=== PATIENT | male | born 1960 | race Caucasian/White ===

== ENCOUNTER 2019-04-12 15:27 | Emergency (ER) | payer SELFPAY ==
[2019-04-12 16:06] LABS: HEMATOCRIT 53.4 % (37.9-51.0); HEMOGLOBIN 18.7 g/dL (13.5-17.0); MEAN CORPUSCULAR HEMOGLOBIN 29.9 pg (27.0-33.4); MEAN CORPUSCULAR HGB CONC 35.1 g/dL (32.0-36.0); MEAN CORPUSCULAR VOLUME 85 fl (80-97); PLATELET COUNT 284 10^3/uL (150-450); RED BLOOD COUNT 6.27 10^6/uL (4.35-5.55); RED CELL DISTRIBUTION WIDTH 14.9 % (11.5-14.0)
[2019-04-12 16:09] LABS: INTERNATIONAL RATION (INR) 0.93; PROTHROMBIN TIME 12.5 SEC (11.4-15.4)
--- NOTE | 2019-04-12 16:10 | RADIOLOGY REPORT (SQ) ---
EXAM DESCRIPTION: CT HEAD WITHOUT COMPLETED DATE/TIME: 04/12/2019 3:52 pm REASON FOR STUDY: slurred speech, left arm weakness, hx of VonWill COMPARISON: None. TECHNIQUE: Axial images acquired through the brain without intravenous contrast. Images reviewed wi th bone, brain and subdural windows. Images stored on PACS. All CT scanners at this facility use dose modulation, iterative reconstruction, and/or weight based d osing when appropriate to reduce radiation dose to as low as reasonably achievable (ALARA). [facility]: Dose Right [facility]: [employer] [facility]: Dose Right [facility]: Teradose 4D [facility]: [employer] RADIATION DOSE: CT Rad equipment meets quality standard of care and radiation dose reduction techniq ues were employed. CTDIvol: 53.2 mGy. DLP: 1070 mGy-cm. mGy. LIMITATIONS: None. FINDINGS: VENTRICLES: Normal size and contour. CEREBRUM: Area of bandlike low density in the periventricular deep white matter on the right extendin g towards the insula and involving the external capsule. Probable subacute or old infarct. No hemor rhage or mass or shift. No hydrocephalus. CEREBELLUM: No mass effect. No hemorrhage. No alteration of density. No evidence for acute infarct ion. EXTRAAXIAL SPACES: No fluid collections. ORBITS AND GLOBE: Symmetrical contour of the globes. CALVARIUM: No depressed skull fracture. PARANASAL SINUSES: No air-fluid level. SOFT TISSUES: No hematoma. IMPRESSION: 1. Suspect previous infarct in the right cerebrum as above. If there is concern of acute CVA, consid er MRI with diffusion-weighted imaging. TECHNICAL DOCUMENTATION: JOB ID: [id number] [facility] [id number]: Final reports with documentation of one or more dose reduction techniques (e.g., Automate d exposure control, adjustment of the mA and/or kV according to patient size, use of iterative recons truction technique) 2010 [employer]- All Rights Reserved Reading location - IP/workstation name: [email or web address]
--- NOTE | 2019-04-12 16:14 | RADIOLOGY REPORT (SQ) ---
EXAM DESCRIPTION: CHEST SINGLE VIEW COMPLETED DATE/TIME: 04/12/2019 3:54 pm REASON FOR STUDY: slurred speech COMPARISON: 11/27/2010 TECHNIQUE: Single frontal radiographic view of the chest acquired. NUMBER OF VIEWS: One view. LIMITATIONS: None. FINDINGS: LUNGS AND PLEURA: No pneumothorax. No consolidation or pleural effusion. MEDIASTINUM AND HILAR STRUCTURES: Stable. HEART AND VASCULAR STRUCTURES: Stable. BONES: No acute findings. HARDWARE: None in the chest. OTHER: No other significant finding. IMPRESSION: NO ACUTE FINDINGS. TECHNICAL DOCUMENTATION: JOB ID: [id number] [place]-72 2010 [employer]- All Rights Reserved Reading location - IP/workstation name: [email or web address]
--- NOTE | 2019-04-12 16:18 | ER Document Report ---
ED Medical Screen (RME) - General Chief Complaint: S/S of Possible Stroke Stated Complaint: SLURRED SPEECH,LEFT FACIAL DROOPING Time Seen by Provider: 04/12/19 15:31 Primary Care Provider: JASMIN WAGNER [Primary Care Provider] - Follow up as needed TRAVEL OUTSIDE OF THE [place] IN LAST 30 DAYS: No - HPI Notes: 04/12/19 59 year old male with history of VonWillebrand disease to the ER with brother with C/O slurred speech, left hand weakness since (4 days ago). Brother confirms that this is the last known normal timeline. Patient has never had a stroke before. He does not have DM, HLD, HTN. He does have a history of VonWillebrand disease. Made Dr. Lee, ER Attending, aware. I performed a brief medical screening exam on the patient and determined that the patient will need further management by mainside provider. I have placed initial orders to help expedite the patient's care today. - Related Data Allergies/Adverse Reactions: No Known Allergies Allergy (Verified 04/12/19 15:30) Past Medical History - Social History Chew tobacco use (# tins/day): No Frequency of alcohol use: None Drug Abuse: None Past Surgical History: Reports: Hx Appendectomy - Immunizations Hx Diphtheria, Pertussis, Tetanus Vaccination: Yes Physical Exam - Vital signs Vitals: Temp Pulse Resp BP Pulse Ox 98.2 F 108 H 16 146/88 H 95 04/12/19 15:30 04/12/19 15:30 04/12/19 15:30 04/12/19 15:30 04/12/19 15:30 Course - Vital Signs Vital signs: Temp Pulse Resp BP Pulse Ox 98.2 F 108 H 16 146/88 H 95 04/12/19 15:30 04/12/19 15:30 04/12/19 15:30 04/12/19 15:30 04/12/19 15:30 - Laboratory Result Diagrams: 04/12/19 15:51 04/12/19 15:51 Laboratory results interpreted by me: 04/12/19 15:50 POC Glucose 352 H Doctor's Discharge - Discharge Referrals: JASMIN WAGNER [Primary Care Provider] - Follow up as needed
--- NOTE | 2019-04-12 16:19 | ER Document Report ---
ED Neuro Symptoms/Deficit - General Chief Complaint: S/S of Possible Stroke Stated Complaint: SLURRED SPEECH,LEFT FACIAL DROOPING Time Seen by Provider: 04/12/19 15:31 Primary Care Provider: JASMIN WAGNER [NO LOCAL MD] - Follow up as needed Notes: Mr. Oliveros is a 59-year-old male with past medical history of von Willebrand disease presenting to the ED for strokelike symptoms. Patient states that he was talking to his sister on the phone and she asked him if he was drunk. He states he does not drink any alcohol but has noticed some significant decrease in strength in the left side of his body, as well as some mild slurred speech. He states that the symptoms have been ongoing for at least 2 weeks. 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 He states that he has been dropping soda cans from his hand and has had increased falls. His symptoms worsened this past . He states that he would not have come to the ED at all unless his brother did not make him earlier today. He denies any chest pain, shortness of breath, lightheadedness or fever/chills. Patient denies any nausea, vomiting or diarrhea. Patient does smoke approximately 1 pack/day and has smoked this since he was 14 years old. Patient also adds that he has not seen a primary care doctor in at least 4 years. TRAVEL OUTSIDE OF THE [place] IN LAST 30 DAYS: No - Related Data Allergies/Adverse Reactions: No Known Allergies Allergy (Verified 04/12/19 15:30) Past Medical History - Social History Smoking Status: Current Every Day Smoker Chew tobacco use (# tins/day): No Frequency of alcohol use: None Drug Abuse: None Family History: DM, Hypertension Patient has suicidal ideation: No Patient has homicidal ideation: No Past Surgical History: Reports: Hx Appendectomy - Immunizations Hx Diphtheria, Pertussis, Tetanus Vaccination: Yes Review of Systems - Review of Systems Constitutional: See HPI EENT: No symptoms reported Cardiovascular: No symptoms reported Respiratory: No symptoms reported Gastrointestinal: No symptoms reported Genitourinary: No symptoms reported Male Genitourinary: No symptoms reported Musculoskeletal: No symptoms reported Skin: No symptoms reported Hematologic/Lymphatic: No symptoms reported Neurological/Psychological: See HPI Physical Exam - Vital signs Vitals: Temp Pulse Resp BP Pulse Ox 98.2 F 108 H 16 146/88 H 95 04/12/19 15:30 04/12/19 15:30 04/12/19 15:30 04/12/19 15:30 04/12/19 15:30 Interpretation: Hypertensive, Tachycardic - General General appearance: Appears well, Alert - HEENT Head: Normocephalic, Atraumatic Eyes: Normal Pupils: PERRL - Respiratory Respiratory status: No respiratory distress Chest status: Nontender Breath sounds: Normal Chest palpation: Normal - Cardiovascular Rhythm: Regular Heart sounds: Normal auscultation Murmur: No - Abdominal Inspection: Normal Distension: No distension Bowel sounds: Normal Tenderness: Nontender Organomegaly: No organomegaly - Back Back: Normal, Nontender - Extremities General upper extremity: Normal inspection, Nontender, Normal color, Normal ROM, Normal temperature General lower extremity: Normal inspection, Nontender, Normal color, Normal ROM, Normal temperature, Normal weight bearing. No: July's sign - Neurological Neuro grossly intact: Yes Cognition: Normal Orientation: AAOx4 Neisha Coma Scale Eye Opening: Spontaneous Maribel Coma Scale Verbal: Oriented Maribel Coma Scale Motor: Obeys Commands Maribel Coma Scale Total: 15 Speech: Normal Cranial nerves: Facial palsy - Left perioral/left lower face is is drooped and flattened., Sensory deficit, Tongue deviation - Towards the right Motor strength normal: RUE, LLE, RLE. No: LUE - Decreased strength in the left arm with pronator drift as well as decreased left hand build master. Additional motor exam normals: Pronator drift - On the left. No: Equal build master - Decreased left hand build master. Sensory: Altered light touch - Psychological Associated symptoms: Normal affect, Normal mood - Skin Skin Temperature: Warm Skin Moisture: Dry Skin Color: Normal Course - Re-evaluation Re-evalutation: Patient is chronically ill-appearing and unkept. Initial vitals notable for mi ldly elevated blood pressure and tachycardia. EKG is nonischemic. Been the patient's history of von Willebrand disease as well as his onset of symptoms over 2 weeks ago and worsening on this past , the patient is not a TPA candidate. Labs and CT were ordered from triage. CBC notable for mild leukocytosis without left shift. H&H is elevated consistent with hemoconcentration. CMP notable for hyperglycemia with glucose of 380. Sodium is mildly decreased at 131 however likely related to elevated glucose. Patient states he has not eaten any food since yesterday however he has had some soda much earlier today. CT concerning for previous infarct in the right cerebrum. However the patient does not have any known history of previous CVA. An MRI was ordered per the recommendation of the CT and radiologist. MRI notable for an acute or subacute infarction of 2.5 cm in the right posterior temporal insular cortex and periventricular white matter. 04/12/19 16:40 NIH stroke scale performed. Patient did receive a 4. However the patient is not a TPA candidate as his symptoms have been going on for approximately 2 weeks now and he already has evidence of infarction on CT. MRI ordered. 04/12/19 18:07 I opened the MRI which was resulted. No radiologist or trim technician called to inform me of results. I spoke to the covering provider hospitalist here who indicated that they do not feel comfortable accepting the patient given the MRI read for the right MCA CVA concerning for acute versus subacute. Requesting evaluation by neurology and that the patient be transferred. Calling winder contort operator for transfer to [facility]. 04/12/19 18:11 Spoke to [facility]. No neurologist available, they use telestroke. Called [facility], for transfer. Transfer center will call back. 04/12/19 18:[address] Powell, radiologist, who stated that the group is using a new automated system to make calls. He will call the provider and let me know how to address how this acute stroke was reported and to who. MD Viviane for this patient, nor did the patient's nurse, Dwain, received any phone calls. 04/12/19 18:[address] Langston, radiologist who read the MRI. He states that he use the automated system which is supposed to call back the clinician within 10 min utes. I explained that no call was received by myself or the nurse. He will investigate further regarding why no one was notified of the acute findings by Dr. Renan GARCIA 04/12/19 18:36 04/12/19 18:42 Spoke to Dayana Garibay @ [facility], midlevel provider with neurology. Recommended transfer to the hospital with hospitalist. Trend support and transfer team will call to recoordinate conversation with myself and hospitalist for patient transfer. 04/12/19 18:[address] Hudson. Will accept patient to stroke floor. Pt accepted to [facility]. - Vital Signs Vital signs: Temp Pulse Resp BP Pulse Ox 98.8 F 96 20 144/84 H 96 04/12/19 19:01 04/12/19 19:14 04/12/19 19:14 04/12/19 19:14 04/12/19 19:14 - Laboratory Result Diagrams: 04/12/19 15:51 04/12/19 15:51 Laboratory results interpreted by me: 04/12/19 04/12/19 04/12/19 15:50 15:51 15:51 WBC 11.0 H RBC 6.27 H Hgb 18.7 H Hct 53.4 H RDW 14.9 H Sodium 131.5 L Chloride 95 L Carbon Dioxide 21 L Glucose 380 H POC Glucose 352 H Calcium 10.4 H - EKG Interpretation by Me EKG shows normal: Sinus rhythm, [place], ST-T Waves Rate: Normal Rhythm: NSR When compared to previous EKG there are: Previous EKG unavailable Additional EKG results interpreted by me: 04/12/19 19:13 Q waves anteriorly in V1, V2, V3, and V4. 04/12/19 19:14 Prolonged QT interval Critical Care Note - Critical Care Note Total time excluding time spent on procedures (mins): 40 - Extensive differential diagnosis, need for multiple reassessments, need for consultants and transfer. Discharge - Discharge Clinical Impression: Acute ischemic right MCA stroke, Left hand weakness, Slurred speech, Limb ataxia Condition: Fair Disposition: [facility] Admitting Provider: Dr. Hudson Referrals: LOCALMD,NO [NO LOCAL MD] - Follow up as needed ED NIH Stroke Scale - NIH Stroke Scale When completed:: Protocol *: 1. NIH scale should be completed with appropriate accompanying assessment tools. *: 2. The NIH should reflect what the patient is capable of doing and should not be coached by the clinician. 1a. Level of Consciousness: 0=Alert;keenly responsive -: 1=Drowsy -: 2=Obtunded -: 3=Coma/unresponsive or reflex to noxious stimuli. 1a. Responses: 0 1b. Orientation Questions: a. What month is it? -: b. How old are you? -: 0=Answers both questions correctly. -: 1=Answers one question correctly or patient is intubated or has orotracheal trauma. -: 2=Answers neither question correctly. 1b. Responses: 0 1c. Response to commands: a. Open and close eyes? -: b. Grinder Hand and release hand? -: Credit is given despite weakness. Demonstration of task is permitted. Substitute command if hands cannot be used. -: 0=Performs both tasks correctly -: 1=Performs one task correctly -: 2=Performs neither task correctly 1c. Responses: 0 2. Gaze: Establish eye contact and instruct patient to "Follow my finger" -: 0=Normal -: 1=Partial gaze palsy. Gaze is abnormal in one or both eyes, but where forced deviation or total gaze paresis is not present. -: 2=Forced deviation or total gaze paresis. 2. Responses: 0 3. Visual Batres: Sees fingers in all four quadrants. -: 0=No visual loss. -: 1=Partial hemianopsia. -: 2=Complete hemianopsia. -: 3=Bilateral hemianopsia (including Cortical blindness) 3. Responses: 0 4. Facial Movement: Instruct patient to: -: a. Show me your teeth -: b. Raise your eyebrows -: c. Close your eyes -: d. Smile -: 0=Normal symmetrical movement -: 1=Minor paralysis (flattened nasolabial fold, asymmetry on smiling). -: 2=Partial paralysis (total or near total paralysis of lower face). -: 3=Complete paralysis of upper and lower face 4. Responses: 1 5. Motor functions (left arm): Alternate sides and extend each arm with palms down (90 degrees if sitting or 45 degrees for supine). -: 0=No drift;limb holds for full 10 seconds. -: 1=Drift; limb holds but drifts down before full 10 seconds, but does not hit bed. -: 2=Some effort against gravity; limb cannot get to or maintain position. -: 3=No effort against gravity; limb falls. -: 4=No movement. -: UN=Amputation, joint fusion, explain in comments. 5. Responses (left arm): 1 5. Motor Functions (right arm): Alternate sides and extend each arm with palms down (90 degrees if sitting or 45 degrees for supine). -: 0=No drift;limb holds for full 10 seconds. -: 1=Drift; limb holds but drifts down before full 10 seconds, but does not hit bed. -: 2=Some effort against gravity; limb cannot get to or maintain position. -: 3=No effort against gravity; limb falls. -: 4=No movement. -: UN=Amputation, joint fusion, explain in comments. 5. Responses (right arm): 0 6. Motor Functions (left leg): With patient lying supine, alternate sides and extend each leg (30 degrees always while supine). -: 0=No drift, leg holds position for full 5 seconds -: 1=Drift; leg falls before full 5 seconds but does not hit bed. -: 2=Some effort against gravity, leg falls to bed but some effort against gravity. -: 3=No effort against gravity, leg falls to bed immediately. -: 4=No movement. -: UN=Amputation, joint fusion; explain in comments. 6. Responses (left leg): 0 6. Motor Functions (right leg): With patient lying supine, alternate sides and extend each leg (30 degrees always while supine). -: 0=No drift, leg holds position for full 5 seconds -: 1=Drift; leg falls before full 5 seconds but does not hit bed. -: 2=Some effort against gravity, leg falls to bed but some effort against gravity. -: 3=No effort against gravity, leg falls to bed immediately. -: 4=No movement. -: UN=Amputation, joint fusion; explain in comments. 6. Responses (right leg): 0 7. Limb Ataxia: With eyes open instruct patient to: -: a. "Touch your finger to your nose". -: b. "Touch your heel to your alexandre" -: 0=Absent -: 1=Present in one limb. -: 2=Present in two limbs. -: UN=Amputation or joint fusion; explain in comments. 7. Responses: 1 8. Sensory: Test sensation using pinprick or noxious stimuli. Test as many body parts as possible. -: 0=Normal;no sensory loss -: 1=Mile to moderate sensory loss (patient feels pin prick but is less sharp on affected side). -: 2=Severe or total sensory loss. 8. Responses: 1 9. Best Language: Instruct patient to: -: a. "Describe what you see in this picture." -: b. "Name the items in this picture." -: c. "Read these sentences." -: 0=No aphasia, normal -: 1=Mild to moderate aphasia. -: 2=Severe aphasia -: 3=Mute, global aphasia, no usable speech or auditory comprehension. 9. Responses: 0 10. Articulation, Dysarthia: Instruct patient to: -: "Read these words" or "Repeat these words" -: 0=Normal -: 1=Mild to moderate; patient may slur some words but can be understood without difficulty. -: 2=Severe; patients speech so slurred as to be unintelligible in the absence of dysphasia. -: UN=Intubated or other physical barrier, explain in comments. 10. Responses: 0 11. Extinction or inattention: 0=No abnormality -: 1= Visual, tactile, auditory, spatial, or personal inattention or extinction to bilateral simulation in one or the sensory modalities. -: 2=Profound thais-inattention or thais-inattention to more than one modality; do es not recognize own hand. 11. Responses: 0 Total Score: 4
[2019-04-12 16:26] LABS: ALBUMIN 4.5 g/dL (3.5-5.0); ALKALINE PHOSPHATASE 102 U/L (38-126); ANION GAP 16 (5-19); ASPARTATE AMINO TRANSFERASE 28 U/L (17-59); BILIRUBIN,DIRECT 0.3 mg/dL (0.0-0.4); BILIRUBIN,TOTAL 1.1 mg/dL (0.2-1.3); BLOOD UREA NITROGEN 17 mg/dL (7-20); CALCIUM 10.4 mg/dL (8.4-10.2); CARBON DIOXIDE 21 mmol/L (22-30); CHLORIDE 95 mmol/L (98-107); GLUCOSE 380 mg/dL (75-110); POTASSIUM 4.6 mmol/L (3.6-5.0); TOTAL PROTEIN 7.6 g/dL (6.3-8.2)
[2019-04-12 16:31] LABS: ABSOLUTE LYMPHOCYTES# (MANUAL) 2.8 10^3/uL (0.5-4.7); BASOPHILS % (MANUAL) 1 % (0-2); EOSINOPHILS % (MANUAL) 1 % (0-6); LYMPHOCYTES % (MANUAL) 25 % (13-45); MONOCYTES % (MANUAL) 9 % (3-13); SEGMENTED NEUTROPHILS % (MAN) 64 % (42-78); TOTAL CELLS COUNTED 100
[2019-04-12 16:32] LABS: ANISOCYTOSIS SLIGHT; PLATELET COMMENT ADEQUATE
--- NOTE | 2019-04-12 17:37 | RADIOLOGY REPORT (SQ) ---
EXAM DESCRIPTION: MRI HEAD WITHOUT COMPLETED DATE/TIME: 04/12/2019 5:20 pm REASON FOR STUDY: abnormal CT, concern for stroke COMPARISON: None. TECHNIQUE: Multiplanar imaging includes non-contrasted T1, T2, FLAIR, and diffusion with ADC map seq uences. Images stored on PACS. LIMITATIONS: None. FINDINGS: ANATOMY: No anomalies. Normal vascular flow voids. Pituitary fossa normal. CSF SPACES: Normal in size and contour. No hemorrhage. CEREBRUM: Sulci and gyri normal in size and contour. Increased T2 signal in the right posterior temp oral insular cortex and periventricular white matter. No evidence of hemorrhage or extraaxial fluid collection. POSTERIOR FOSSA: No signal alteration. No hemorrhage. No edema, masses or mass effect. Internal katerina tory canals, cerebello-pontine angles, mastoids normal. DIFFUSION IMAGING: Positive for acute or sub-acute infarction in a 2.5 cm area of the right posterior temporal insular cortex and periventricular white matter. ORBITS: No masses. Globes normal. PARANASAL SINUSES: No fluid levels. Mucosa normal. OTHER: No other significant finding. IMPRESSION: Positive for acute or sub-acute infarction in a 2.5 cm area of the right posterior tempo ral insular cortex and periventricular white matter. EVIDENCE OF ACUTE STROKE: YES. RIGHT MCA COMMENT: The findings were sent to the Radiology Results Communication Center at 17:30 on 9 to be communicated to a licensed caregiver. TECHNICAL DOCUMENTATION: JOB ID: [id number] [place]-72 2010 [employer]- All Rights Reserved Reading location - IP/workstation name: [employer]
[2019-04-12] MEDS ORDERED: NORMAL SALINE 1000 ML 1,000 ML IV ONE ×2 (18:40→19:12)
[2019-04-12] MEDS ORDERED: ASPIRIN 81 MG TABLET, CHEWABLE PO ONE (18:41)
--- NOTE | 2019-04-12 20:59 | EKG REPORT ---
SEVERITY:- ABNORMAL ECG - SINUS RHYTHM ANTERIOR INFARCT, AGE INDETERMINATE PROLONGED QT INTERVAL : Confirmed by: Giovanny James MD 12-Apr-2019 20:59:05
[2019-04-12 23:37] VITALS: BP 129/77
== END 2019-04-12 23:44 | disposition short-term general hospital (02) ==
LOC: ER 15:27
DX: I63.9 Cerebral infarction, unspecified (principal); G81.94 Hemiplegia, unspecified affecting left nondominant side; R27.0 Ataxia, unspecified; R47.81 Slurred speech; F17.210 Nicotine dependence, cigarettes, uncomplicated
CPT/HCPCS: 93005; 85240; 85245; 85246; 36415; 82962; 85025; 85610; 80053; 84484; 83036; 70551; 71045; 70450; 93010; J7030; 96360; 96361; 99291

== ENCOUNTER 2019-09-07 09:47 | Emergency (ER) | payer SELFPAY ==
[2019-09-07 09:53] VITALS: BP 145/80
--- NOTE | 2019-09-07 10:08 | ER Document Report ---
HPI - HPI Time Seen by Provider: 09/07/19 09:58 Notes: Patient is a 59-year-old male presenting to the emergency department with request for medication refill. Patient reports he has been out of his medication for 1 month. He needs a refill on his metoprolol, atorvastatin, lisinopril and metformin. He denies any physical complaints today. He states he usually sees the [facility], states they are closed due to COVID-19. - REPRODUCTIVE Reproductive: DENIES: : Past Medical History - General Information source: Patient - Social History Smoking Status: Never Smoker Frequency of alcohol use: None Drug Abuse: None Family History: DM, Hypertension - Past Medical History Cardiac Medical History: Reports: Hx Hypercholesterolemia, Hx Hypertension Past Surgical History: Reports: Hx Appendectomy - Immunizations Hx Diphtheria, Pertussis, Tetanus Vaccination: Yes Vertical Provider Document - CONSTITUTIONAL Notes: PHYSICAL EXAMINATION: GENERAL: Well-appearing, well-nourished and in no acute distress. HEAD: Atraumatic, normocephalic. EYES: Pupils equal round extraocular movements intact, conjunctiva are normal. ENT: Nares patent NECK: Normal range of motion LUNGS: No respiratory distress Musculoskeletal: Normal range of motion NEUROLOGICAL: Normal speech, normal gait. PSYCH: Normal mood, normal affect. SKIN: Warm, Dry, normal turgor, no rashes or lesions noted. - INFECTION CONTROL TRAVEL OUTSIDE OF THE [place] IN LAST 30 DAYS: No Course - Re-evaluation Re-evalutation: 09/07/19 10:10 Medications refilled as per request. Patient's primary care physician is the [facility]. He states he has tried getting an appointment however they are closed. Patient has no physical complaints today. - Vital Signs Vital signs: Temp Pulse Resp BP Pulse Ox 97.6 F 101 H 18 145/80 H 93 09/07/19 09:52 09/07/19 09:52 09/07/19 09:52 09/07/19 09:52 09/07/19 09:52 Discharge - Discharge Clinical Impression: Medication refill Condition: Stable Disposition: HOME, SELF-CARE Additional Instructions: Your medications were refilled today. I also gave you a one-month refill. Please call to establish an appointment with your primary care provider as soon as they open back up. Prescriptions: Atorvastatin Calcium [Lipitor 80 mg Tablet] 80 mg PO QHS #30 tablet Lisinopril [Prinivil 10 mg Tablet] 10 mg PO QHS #30 tablet Metformin HCl 1,000 mg PO BID #60 tablet Metoprolol Succinate [Toprol Xl 25 mg Tab.sr] 25 mg PO DAILY #30 tab.sr.24h
== END 2019-09-07 10:11 | disposition home or self-care (01) ==
LOC: ER 09:47
DX: Z76.0 Encounter for issue of repeat prescription (principal); Z79.899 Other long term (current) drug therapy; Z79.84 Long term (current) use of oral hypoglycemic drugs; I10 Essential (primary) hypertension
CPT/HCPCS: 99281